=== PATIENT | male | born 1950 | race Two or more races ===

== ENCOUNTER 2024-09-29 14:16 | Inpatient (IN) | payer OTHER ==
[~2024-09-29] VITALS: Ht 177.8 cm; Wt 132.5 kg
[2024-09-29 15:03] LABS: BASOPHILS % 0.6 % (0.0-2.0); EOSINOPHILS % 2.6 % (0.0-5.0); HEMATOCRIT. 37.3 % (42.0-52.0); HEMOGLOBIN. 12.1 g/dL (14.0-18.0); MEAN CORPUSCULAR HEMOGLOBIN 29.3 pg (28.0-32.0); MEAN CORPUSCULAR HGB CONC 32.5 g/dL (31.0-37.0); MEAN CORPUSCULAR VOLUME 90.1 fL (80.0-94.0); MONOCYTES % 3.7 % (2.0-8.0); NEUTROPHILS % 76.1 % (40.0-76.0); PLATELET 182 x1000/uL (130-400); RED BLOOD CELL COUNT 4.13 mill/uL (4.7-6.1); RED CELL DISTRIBUTION WIDTH 18.4 % (11.6-14.6)
[2024-09-29 15:09] LABS: CHLORIDE 109 mEq/L (98-107); POTASSIUM 3.3 mEq/L (3.5-5.1); SODIUM 142 mEq/L (136-145)
[2024-09-29 15:11] LABS: CALCIUM 8.7 mg/dL (8.7-10.4); CARBON DIOXIDE 20 mEq/L (21-32)
[2024-09-29 15:15] LABS: CREATININE 1.2 mg/dL (0.6-1.3)
[2024-09-29 15:16] LABS: GLUCOSE 188 mg/dL (70-105); UREA NITROGEN BLOOD 14 mg/dL (9-23)
[2024-09-29 15:17] LABS: TROPONIN I HIGH SENSITIVITY 43 ng/L (3.0-53)
[2024-09-29] MEDS: EPINEPHRINE 5 MG in SODIUM CHLORIDE 0.9% 245 ML IV STA (15:42)
[2024-09-29 15:45] LABS: LACTIC ACID 5.4 mmol/L (0.4-2.0)
[2024-09-29] MEDS: IOHEXOL-350 100 ML BOTTLE ONE (17:02)
[2024-09-29] MEDS ORDERED: ACETAMINOPHEN 325MG TABLET PO PRN ×2 (19:30)
[2024-09-29] MEDS ORDERED: MEROPENEM 1,000 MG in SODIUM CHLORIDE 0.9% 100 ML IV SCH (19:30)
[2024-09-29] MEDS ORDERED: IPRATROPIUM/ALBUTEROL 0.5-3(2.5)MG/3ML NEB NEB PRN (19:30)
[2024-09-29] MEDS ORDERED: GUAIFENESIN 200MG/10ML SUGAR FREE UDC PO PRN (19:30)
[2024-09-29] MEDS ORDERED: CLONIDINE 0.1MG TABLET PO PRN (19:30)
[2024-09-29] MEDS ORDERED: MAGNESIUM/ALUMINUM HYDROXIDE/SIMETHICONE 30ML UDC PO PRN (19:30)
[2024-09-29] MEDS ORDERED: DOCUSATE SODIUM 100MG CAPSULE PO PRN (19:30)
[2024-09-29] MEDS ORDERED: ZOLPIDEM TARTRATE 5MG TABLET PO PRN (19:30)
[2024-09-29] MEDS ORDERED: NITROGLYCERIN 0.4MG TABLET SL SL PRN (19:30)
[2024-09-29 19:51] LABS: IRON 71 ug/dL (65-175); TRIGLYCERIDE 85 mg/dL (0-150)
[2024-09-29 19:52] LABS: LDL CHOLESTEROL 45 mg/dL (5-100)
[2024-09-29 19:53] LABS: ALANINE AMINOTRANSFERASE 8 IU/L (10-49); ALBUMIN 3.3 g/dL (3.2-4.8); ASPARTATE AMINOTRANSFERASE 12 IU/L (<34); BILIRUBIN DIRECT 0.7 mg/dL (<=3.0); BILIRUBIN TOTAL 1.6 mg/dL (0.1-1.0); CHOLESTEROL 76 mg/dL (<200); HDL CHOLESTEROL 25 mg/dL (>55); PROTEIN TOTAL 5.3 g/dL (6.0-8.3); TOTAL IRON BINDING CAPACITY 236 ug/dl (250-425)
[2024-09-29 19:56] LABS: FOLIC ACID (FOLATE) SERUM 7.49 ng/mL (>5.38); THYROID STIMULATING HORMONE 5.63 uIU/mL (0.55-4.78); VITAMIN B12 SERUM 332 pg/mL (211-911)
[2024-09-29] MEDS: VANCOMYCIN 1.5GM/250ML 250 ML IV NR (20:45)
[2024-09-29] MEDS: FAMOTIDINE 20MG TABLET PO SCH (21:33)
[2024-09-29] MEDS: ASCORBIC ACID 500 MG TABLET PO SCH (21:34)
[2024-09-29] MEDS: ENOXAPARIN 30MG/0.3ML SYR SUBCUT SCH (21:34)
[2024-09-29] MEDS: LACTATED RINGERS 3,000 ML IV ONE (22:26)
[2024-09-29] MEDS: KETOROLAC 15MG/ML VIAL IV PRN (22:27)
[2024-09-29] MEDS: ONDANSETRON HCL 4MG/2ML INJ IV PRN (22:27)
[2024-09-29] MEDS ORDERED: POTASSIUM CHLORIDE 20MEQ TABLET SR PO NR (22:30)
[2024-09-29 22:38] LABS: CREATINE KINASE MB FRACTION 7.7 ng/mL (0.5-3.6)
[2024-09-29] MEDS ORDERED: IOHEXOL-350 100 ML BOTTLE ONE (23:40)
[2024-09-30] VITALS (12 sets, daily range): BP systolic 98–120; BP diastolic 72–93; PULSE 85–102; RESP 8–25; TEMP 35.78064–36.55848; O2SAT 96–100
[2024-09-30] MEDS: MEROPENEM 1G/100ML IV SCH ×2 (05:52→13:39)
[2024-09-30 06:00] LABS: CREATINE KINASE MB FRACTION 9.2 ng/mL (0.5-3.6)
[2024-09-30 06:11] LABS: ALANINE AMINOTRANSFERASE 7 IU/L (10-49); ALBUMIN 3.5 g/dL (3.2-4.8); ASPARTATE AMINOTRANSFERASE 13 IU/L (<34); BILIRUBIN TOTAL 1.5 mg/dL (0.1-1.0); CARBON DIOXIDE 24 mEq/L (21-32); CHLORIDE 106 mEq/L (98-107); PHOSPHORUS 3.5 mg/dL (2.5-4.9); POTASSIUM 4.2 mEq/L (3.5-5.1); PROTEIN TOTAL 5.9 g/dL (6.0-8.3); SODIUM 141 mEq/L (136-145); UREA NITROGEN BLOOD 14 mg/dL (9-23)
[2024-09-30 06:12] LABS: CALCIUM 9.5 mg/dL (8.7-10.4)
[2024-09-30 06:16] LABS: CREATININE 1.2 mg/dL (0.6-1.3)
[2024-09-30 06:17] LABS: GLUCOSE 120 mg/dL (70-105)
[2024-09-30] MEDS ORDERED: VANCOMYCIN 750MG/150ML (BAXTER) IV SCH (08:00)
[2024-09-30 08:10] LABS: BASOPHILS % 0.4 % (0.0-2.0); EOSINOPHILS % 0.9 % (0.0-5.0); HEMATOCRIT. 38.4 % (42.0-52.0); HEMOGLOBIN. 12.6 g/dL (14.0-18.0); LYMPHOCYTES % 20.4 % (20.0-50.0); MEAN CORPUSCULAR HEMOGLOBIN 29.3 pg (28.0-32.0); MEAN CORPUSCULAR HGB CONC 32.9 g/dL (31.0-37.0); MEAN CORPUSCULAR VOLUME 89.2 fL (80.0-94.0); MEAN PLATELET VOLUME 9.1 fl (7.4-10.4); MONOCYTES % 5.2 % (2.0-8.0); NEUTROPHILS % 73.1 % (40.0-76.0); PLATELET 190 x1000/uL (130-400); RED CELL DISTRIBUTION WIDTH 17.8 % (11.6-14.6); WHITE BLOOD COUNT 8.6 x1000/uL (4.5-11.0)
[2024-09-30] MEDS: ZINC SULFATE 220 MG ( 50 ) CAPSULE PO SCH (08:46)
[2024-09-30] MEDS: ASPIRIN 81MG EC TABLET PO SCH (08:47)
[2024-09-30] MEDS: VANCOMYCIN 1.5GM/250ML 250 ML IV SCH (18:07)
[2024-09-30 22:37] LABS: TROPONIN I HIGH SENSITIVITY 1235 ng/L (3.0-53)
[2024-10-01] VITALS (12 sets, daily range): BP systolic 105–134; BP diastolic 61–88; PULSE 79–95; RESP 0–20; TEMP 36.50292–37.16964; O2SAT 95–100
[2024-10-01 07:53] LABS: TROPONIN I HIGH SENSITIVITY 1094 ng/L (3.0-53)
[2024-10-02] VITALS (11 sets, daily range): BP systolic 112–129; BP diastolic 77–107; PULSE 77–89; RESP 13–19; TEMP 36.3918–36.83628; O2SAT 96–98
[2024-10-02 07:07] LABS: BASOPHILS % 1.2 % (0.0-2.0); EOSINOPHILS % 5.8 % (0.0-5.0); HEMATOCRIT. 40.3 % (42.0-52.0); LYMPHOCYTES % 23.6 % (20.0-50.0); MEAN CORPUSCULAR HEMOGLOBIN 28.9 pg (28.0-32.0); MEAN CORPUSCULAR HGB CONC 32.2 g/dL (31.0-37.0); MEAN CORPUSCULAR VOLUME 89.8 fL (80.0-94.0); MEAN PLATELET VOLUME 8.7 fl (7.4-10.4); MONOCYTES % 5.8 % (2.0-8.0); NEUTROPHILS % 63.6 % (40.0-76.0); PLATELET 202 x1000/uL (130-400); RED BLOOD CELL COUNT 4.48 mill/uL (4.7-6.1); RED CELL DISTRIBUTION WIDTH 18.6 % (11.6-14.6); WHITE BLOOD COUNT 8.6 x1000/uL (4.5-11.0)
[2024-10-02 07:17] LABS: POTASSIUM 4.4 mEq/L (3.5-5.1)
[2024-10-02 07:18] LABS: CALCIUM 9.6 mg/dL (8.7-10.4)
[2024-10-02 07:23] LABS: CREATININE 1.3 mg/dL (0.6-1.3)
== END 2024-10-02 19:26 | disposition short-term general hospital (02) | DRG 871 ==
LOC: ER 14:31 → 5EST 23:13
PROVIDERS: ADMIT Internal Medicine; ATTEND Internal Medicine
DX: A41.9 Sepsis, unspecified organism (principal); I21.A1 Myocardial infarction type 2; J96.01 Acute respiratory failure with hypoxia; G93.40 Encephalopathy, unspecified; E87.20 Acidosis, unspecified; L03.116 Cellulitis of left lower limb; R65.20 Severe sepsis without septic shock; L03.115 Cellulitis of right lower limb; I11.0 Hypertensive heart disease with heart failure; I35.0 Nonrheumatic aortic (valve) stenosis; E78.5 Hyperlipidemia, unspecified; E11.65 Type 2 diabetes mellitus with hyperglycemia; E87.6 Hypokalemia; I83.015 Varicose veins of right lower extremity with ulcer other part of foot; I83.025 Varicose veins of left lower extremity with ulcer other part of foot; R00.1 Bradycardia, unspecified; D63.8 Anemia in other chronic diseases classified elsewhere; D69.6 Thrombocytopenia, unspecified; I87.2 Venous insufficiency (chronic) (peripheral); K57.30 Diverticulosis of large intestine without perforation or abscess without bleeding; I25.10 Atherosclerotic heart disease of native coronary artery without angina pectoris; D50.9 Iron deficiency anemia, unspecified; I50.9 Heart failure, unspecified; I44.7 Left bundle-branch block, unspecified; Z91.148 Patient's other noncompliance with medication regimen for other reason; Z95.2 Presence of prosthetic heart valve
CPT/HCPCS: 36415; 71045; 74174; 80048; 80053; 80061; 80076; 80202; 82550; 82553; 82607; 82746; 83036; 83540; 83550; 83605; 83735; 83880; 84100; 84145; 84439; 84443; 84484; 85025; 93005; 93306; 93970; 99291; J1650; J1885; J2185; J2405; J3370; J3490; J7050; Q9967